=== PATIENT | male | born 1950 | race Caucasian/White ===

== ENCOUNTER 2018-04-26 22:38 | Inpatient (IN) | payer MEDICARE ==
[2018-04-26] MEDS ORDERED: SODIUM CHLORIDE 0.9% 1,000 ML IV ONE (22:49)
--- NOTE | 2018-04-26 22:49 | ED ---
General Adult HPI - General Stated complaint: Abdominal Pain Time Seen by Provider: 04/26/18 22:40 Source: RN notes reviewed - History of Present Illness Initial comments: This is a 67-year-old male who presents emergency department with past medical history significant for Crohn's. Patient started having some abdominal upset 2 days ago but yesterday he stopped having any bowel movements and passing any gas. Patient states today the pain got worse and he started vomiting. Patient went [facility] where they evaluated him and determined that he had small bowel obstruction or flareup of his Crohn's. Patient was transferred our facility because they had no appropriate specialties to take care of the patient. Patient denies any fever chills. Patient denies chest pain difficulty breathing shortest breath. Patient denies headache patient denies numbness weakness. Patient denies any recent fever chills or cough. Review of Systems ROS Statement: Those systems with pertinent positive or pertinent negative responses have been documented in the HPI. ROS Other: All systems not noted in ROS Statement are negative. General Exam - General Exam Comments Initial Comments: GENERAL: Patient is well-developed and well-nourished. Patient is nontoxic and well- hydrated and is in mild distress. ENT: Neck is soft and supple. No significant lymphadenopathy is noted. Oropharynx is clear. Moist mucous membranes. Neck has full range of motion without eliciting any pain. EYES: The sclera were anicteric and conjunctiva were pink and moist. Extraocular movements were intact and pupils were equal round and reactive to light. Eyelids were unremarkable. PULMONARY: Unlabored respirations. Good breath sounds bilaterally. No audible rales rhonchi or wheezing was noted. CARDIOVASCULAR: There is a regular rate and rhythm without any murmurs gallops or rubs. ABDOMEN: Soft and nontender with decreased bowel sounds. No palpable organomegaly was noted. There is no palpable pulsatile mass. SKIN: Skin is clear with no lesions or rashes and otherwise unremarkable. NEUROLOGIC: Patient is alert and oriented x3. Cranial nerves II through XII are grossly intact. Motor and sensory are also intact. Normal speech, volume and content. Symmetrical smile. MUSCULOSKELETAL: Normal extremities with adequate strength and full range of motion. LYMPHATICS: No significant lymphadenopathy is noted PSYCHIATRIC: Normal psychiatric evaluation. Normal interpersonal interactions appears functionally intact in deals appropriately with others. No signs of depression. No signs of anxiety. Course Vital Signs 04/26/18 22:39 Temperature 97.8 F Pulse Rate 75 Respiratory 20 Rate Blood Pressure 130/55 O2 Sat by Pulse 99 Oximetry Disposition Clinical Impression: Exacerbation of Crohn's disease, Small bowel obstruction Disposition: ADMITTED IP TO THIS HOSP Referrals: Redd Altman DO [Primary Care Provider] - 1-2 days Time of Disposition: 22:49
[2018-04-26] MEDS ORDERED: methylPREDNISolone SOD SUCCI 125 MG/2 ML VIAL IV STA (22:52)
[2018-04-27] MEDS ORDERED: methylPREDNISolone SOD SUCCI 125 MG/2 ML VIAL IV SCH
[2018-04-27] MEDS ORDERED: ONDANSETRON 4 MG/2 ML VIAL IVP PRN (00:22)
[2018-04-27] MEDS ORDERED: MORPHINE SULFATE 4 MG/ML SYRINGE IV PRN (00:22)
[2018-04-27] MEDS ORDERED: NALOXONE 0.4 MG/ML 1 ML VIAL IV PRN (00:22)
--- NOTE | 2018-04-27 00:37 | P.HPIM ---
History of Present Illness H&P Date: 04/27/18 Chief Complaint: abd pain and constipation 67 year old male with history of crohns disease , transferred to our facility from [facility] due to small bowel obstruction Patient reports 2 day history of abdominal pain worsening today described as colicky sharp pain 6 out of 10 in severity at its worse and eases down to 2 out of 10. This is diffuse in nature all over his abdomen, associated with repeated vomiting of stomach content nonbilious nonbloody, patient also noticed constipation and not to be able to pass gases over the past day or 2 for which she got concerned. Normally he has diarrhea on regular basis but nonbloody. He initially thought that some stomach upset however due to obstipation he got concerned and wants the hospital [facility] further workup revealed possible small bowel obstruction with colitis possible flareup of Crohn's disease. Patient was transferred to our facility for further care. Patient reports abdominal distention that has resolved since insertion of NG tube and suctioning Patient reports history of some bowel resection done 15 years ago. He denies any alcohol or illicit drugs. He admits to few cigarettes every day. He otherwise has no other medical problems from before denies any history of hypertension and CAD or diabetes. He denies any GI bleeding. He denies any fevers or chills denies any headache changes in his vision or hearing. He denies any focal neurologic deficits. Review of Systems Pertinent positives as noted in HPI. All other systems were reviewed and are negative Past Medical History Additional Past Medical History / Comment(s): Crohns History of Any Multi-Drug Resistant Organisms: None Reported Past Surgical History: Appendectomy, Bowel Resection, Orthopedic Surgery Past Psychological History: No Psychological Hx Reported Smoking Status: Current every day smoker Past Alcohol Use History: None Reported Past Drug Use History: None Reported - Past Family History Family Family Medical History: Diabetes Mellitus Additional Family Medical History / Comment(s): History of diabetes Medications and Allergies Home Medications Medication Instructions Recorded Confirmed Type No Known Home Medications 04/26/18 04/26/18 History Allergies Allergy/AdvReac Type Severity Reaction Status Date / Time ciprofloxacin [From Cipro] Allergy Unknown Verified 04/26/18 23:03 Physical Exam Vitals: Vital Signs Temp Pulse Resp BP Pulse Ox 04/26/18 22:39 97.8 F 75 20 130/55 99 Intake and Output 0704/26/18 04/27/18 14:59 22:59 06:59 Other: Weight 60.328 kg Constitutional: No acute distress, conversant, pleasant, hard of hearing Eyes: Anicteric sclerae, moist conjunctiva, no lid-lag Pupils equal round reactive to light ENMT: NC/AT Oropharynx clear, no erythema, or exudates Neck: Supple, FROM, no masses, or JVD No carotid bruits No thyromegaly Lungs: Clear to auscultation Clear to percussion Normal respiratory effort, no accessory muscle use Cardiovascular: Heart regular in rate and rhythm, No murmurs, gallops, or rubs No peripheral edema Abdominal: Soft abdomen, moving with respiration. Diffuse tenderness to deep palpation with voluntary guarding no rigidity no rebound tenderness. Bowel sounds are negative very mild abdominal distention No hepatomegaly, No splenomegaly No palpable mass No abdominal wall hernia noted Skin: Normal temperature, tone, texture, turgor No induration No subcutaneous nodules No rash, lesions No ulcers Extremities: No digital cyanosis No clubbing Pedal pulses intact and symmetrical Radial pulses intact and symmetrical No calf tenderness Psychiatric: Alert and oriented to person, place and time Appropriate affect fair judgment Neuro Muscles Strength 5/5 in all 4 extremities Sensation to light touch grossly present throughout Cranial nerves II-XII grossly intact No focal sensory deficits Lymphatics: no palpable cervical or supraclavicular , or inguinal lymph nodes NG tube in place connected to intermittent low suction Assessment and Plan Assessment: 67-year-old male with history of Crohn's disease and history of appendectomy and partial small bowel resection 15 years ago. Patient is admitted as inpatient with anticipated length of stay of one in 2 days he was transferred from [facility] facility due to finding of acute small bowel obstruction flareup of Crohn's disease. Plan: Acute small bowel obstruction Acute flareup of Crohn's disease Symptomatic control Bowel rest NG tube connected to low intermittent wall suctioning IV fluid hydration Monitor and correct electrolytes IV steroids GI consult General surgery consult DVT prophylaxis on heparin subcu 3 times a day Surrogate decision-maker: Patient CODE STATUS: Full code Anticipated discharge: 48-[address]: Home A total of 50 minutes was spent on the care of this complex patient more than 50 % of the time was spent in counseling and care coordination.
[2018-04-27] MEDS: methylPREDNISolone SOD SUCCI 125 MG/2 ML VIAL IVP SCH ×4 (06:26→23:57)
[2018-04-27] MEDS: HEPARIN SODIUM,PORCINE 5,000 UNIT/ML 1 ML VIAL SQ SCH ×3 (10:05→23:57)
[2018-04-27 12:14] VITALS: BMI 21.4
--- NOTE | 2018-04-27 12:15 | P.GSCN ---
History of Present Illness Consult date: 04/27/18 History of present illness: CHIEF COMPLAINT: Abdominal distention 1 day HISTORY OF PRESENT ILLNESS: The patient is a 67-year-old male transferred from [facility] secondary to bowel obstruction. He has a personal history of untreated Crohn's disease. He has past history of partial bowel resection involving the ileocecal valve. His is at bedside giving most of his history. He did have acute abdominal distention with pain and nausea and vomiting yesterday. Nasogastric tube was placed yesterday. This morning, abdominal distention is resolved. Abdominal pain is also improved. He is passing flatus. NG tube primarily putting out red succunt. He does not see a bias binding folder. PAST MEDICAL HISTORY: See list. PAST SURGICAL HISTORY: See list. CURRENT MEDICATIONS: See list. ALLERGIES: See list. SOCIAL HISTORY: See list. FAMILY HISTORY: Denies ulcerative colitis. REVIEW OF ORGAN SYSTEMS: CONSTITUTIONAL: Denies any fever or chills. HEENT: Denies any trouble with vision nosebleeds. No difficulty swallowing. He is hard of hearing. LYMPHATIC: The patient denies any lumps and bumps around the neck. ENDOCRINE: Denies any thyroid disorders. Denies any blood sugar glucose intolerance. RESPIRATORY: Denies shortness of breath including chronic cough. CARDIOVASCULAR: Denies history of chest pain with exertion. GASTROINTESTINAL: Has past history of multiple bowel obstructions GENITOURINARY: Denies any blood in urine or increased urinary frequency. MUSCULOSKELETAL: Has joint arthritis. NEUROLOGIC: Denies any numbness or tingling along the distal extremities. No seizure disorders or headaches. PSYCHIATRIC: Denies any depression or suicidal ideation. HEMATOLOGIC: Denies any abnormal bleeding or bruising. PHYSICAL EXAMINATION: GENERAL: Well developed and in no acute distress. Pleasant. HEENT: No sclera icterus. Extraocular movements grossly intact. Moist buccal mucosa. Head is atraumatic, normocephalic. Hears conversational speech. No nasal drainage. NG tube present with dark red aspirant. NECK: Supple without lymphadenopathy. No JV distention. CHEST: Non-labored respirations and equal bilateral excursions. CARDIOVASCULAR: Regular rate and rhythm. Palpable 2+ radial pulses. ABDOMEN: Soft. Nondistended. No peritonitis. Minimal lower quadrant abdominal pain with deep palpation. MUSCULOSKELETAL: No clubbing, cyanosis or edema. NEUROLOGIC: No focal or lateralizing signs. PSYCH: Appropriate affect. Alert and oriented to person, place and time. LABS: Reviewed STUDIES: CT of the abdomen and pelvis reviewed with findings consistent with dilated small bowel. Possible transition point right lower quadrant this is my personal interpretation. ASSESSMENT: 1. Right lower quadrant pain. 2. Small bowel obstruction 3. History of Crohn's disease, untreated PLAN: 1. Clinically he is doing well. Recommend additional imaging. 2. Bilateral SCDs. 3. IV fluid hydration 4. DVT prophylaxis with heparin. 5. GI prophylaxis. Thank you very much for allowing me to participate in the care of your patient. Past Medical History Additional Past Medical History / Comment(s): Crohns History of Any Multi-Drug Resistant Organisms: None Reported Past Surgical History: Appendectomy, Bowel Resection, Orthopedic Surgery Past Psychological History: No Psychological Hx Reported Smoking Status: Current every day smoker Past Alcohol Use History: None Reported Past Drug Use History: None Reported - Past Family History Family Family Medical History: Diabetes Mellitus Additional Family Medical History / Comment(s): History of diabetes Medications and Allergies Home Medications Medication Instructions Recorded Confirmed Type No Known Home Medications 04/26/18 04/26/18 History Allergies Allergy/AdvReac Type Severity Reaction Status Date / Time ciprofloxacin [From Cipro] Allergy Unknown Verified 04/26/18 23:03 Surgical - Exam Vital Signs Temp Pulse Resp BP Pulse Ox 97.8 F 75 20 130/55 99 04/26/18 22:39 04/26/18 22:39 04/26/18 22:39 04/26/18 22:39 04/26/18 22:39 ABDOMEN: Soft. Nondistended. No peritonitis. Minimal lower quadrant abdominal pain with deep palpation. Results - Labs 04/27/18 12:42 04/27/18 12:42 - Imaging CT scan - abdomen: image reviewed US - abdomen: image reviewed Assessment and Plan (1) Exacerbation of Crohn's disease Current Visit: Yes Status: Acute Code(s): K50.90 - CROHN'S DISEASE, UNSPECIFIED, WITHOUT COMPLICATIONS SNOMED Code(s): 11792847 (2) Small bowel obstruction Current Visit: Yes Status: Acute Code(s): K56.609 - UNSP INTESTNL OBST, UNSP TO PARTIAL VERSUS COMPLETE OBST SNOMED Code(s): 243969877 Plan: 1. Will repeat abdominal x-ray regarding clinical bowel obstruction which appears to be improving. 2. Continue steroids. 3. Will need follow-up and management with bias binding folder. 4. No surgical intervention needed. 5. Recommend antacid for gastritis with bleed. 6. Potential discontinue NG tube and start of clear liquid diet pending additional studies.
[2018-04-27] MEDS ORDERED: SODIUM CHLORIDE 0.9% 1,000 ML IV ONE (12:16)
--- NOTE | 2018-04-27 12:48 | P.PN ---
Subjective Progress Note Date: 04/27/18 Principal diagnosis: abdominal pain Patient is a 67-year-old male for history of Crohn's disease requiring resection of 9 inches of small bowel back in 2002 who has not had GI follow-up or colonoscopy since that time and tobacco abuse who initially presented to [facility] with complaints of abdominal pain and constipation. He underwent an extensive evaluation was found have a small bowel obstruction along with enteritis. His laboratory analysis showed an elevated white blood cell count. He had an NG tube placed and he was transferred to our facility for further management. He has been started on steroids. Patient seen and examined at bedside. He states he passed gas this morning for the first time in 2 days. He is still having copious amounts of drainage out of his NG tube. He denies any abdominal pain. No chest pain, shortness of breath, or nausea. I had a colonoscopy since having of bowel resection. He is not chronically taking anything for his Crohn's disease. He has intermittent diarrhea with blood in his stools and abdominal pain. He usually self resolves. His reports that he goes to the urgent care gets placed on steroids and then stopped taking these. He has never chronically followed up with the GI doctor. They live in [place]. Objective - Vital Signs Vital signs: Vital Signs Temp 97.7 F 04/27/18 07:00 Pulse 74 04/27/18 07:00 Resp 18 04/27/18 07:00 BP 102/62 04/27/18 07:00 Pulse Ox 92 L 04/27/18 07:00 Intake & Output 04/26/18 04/27/18 04/27/18 18:59 06:59 18:59 Output Total 900 Balance -900 Weight 60.328 kg 60.328 kg Output: Urine 900 Other: Voiding Method Urinal - Exam General: non toxic, mild distress, appears at stated age Derm: warm, dry Head: atraumatic, normocephalic, symmetric Eyes: EOMI, no lid lag, anicteric sclera Mouth: no lip lesion, mucus membranes moist Cardiovascular: S1-S2 regular, no murmur, positive posterior tibial pulse bilateral, Lungs: Breath sounds bilateral bases, no rhonchi, no rales , no accessory muscle use Abdominal: soft, tender to palpation left lower quadrant, no guarding, no appreciable organomegaly, NG tube in place Ext: no gross muscle atrophy, no edema, no contractures Neuro: CN II-XI grossly intact, no focal neuro deficits Psych: Alert, oriented, appropriate affect Assessment and Plan Assessment: Acute exacerbation of Crohn's disease with small bowel instruction -Nothing by mouth, NG tube in place -GI consultation -Surgical recommendations appreciated -Continue with steroids -Zosyn added -Continue to monitor progress -Stat CBC and basic metabolic profile based on bloody NG tube output Tobacco abuse -Cessation -Nicotine replacement DVT prophylaxis: Heparin Discussed with: Patient, , nursing Anticipated discharge: 3-[address]: Home A total of 35 minutes was spent on the care of this complex patient more than 50 % of the time was spent in counseling and care coordination.
[2018-04-27 12:54] LABS: HCT 39.6 % (39.0-53.0); HGB 12.9 gm/dL (13.0-17.5); MCH 32.7 pg (25.0-35.0); MCHC 32.7 g/dL (31.0-37.0); MCV 100.1 fL (80.0-100.0); Mean Platelet Volume 6.4; Platelet Count 341 k/uL (150-450); RBC 3.96 m/uL (4.30-5.90); RDW 12.7 % (11.5-15.5); WBC 11.4 k/uL (3.8-10.6)
[2018-04-27 13:05] LABS: ALT 33 U/L (21-72); AST 22 U/L (17-59); Alkaline Phosphatase 52 U/L (38-126); Anion Gap 8 mmol/L; Blood Urea Nitrogen 24 mg/dL (9-20); Calcium 8.1 mg/dL (8.4-10.2); Carbon Dioxide 24 mmol/L (22-30); Chloride 108 mmol/L (98-107); Glucose 115 mg/dL (74-99); Sodium 140 mmol/L (137-145); Total Bilirubin 0.5 mg/dL (0.2-1.3); Total Protein 5.3 g/dL (6.3-8.2)
--- NOTE | 2018-04-27 14:04 | XR ---
EXAMINATION TYPE: XR abdomen 2V , 2 VIEWS DATE OF EXAM ORDERED: 04/27/2018 HISTORY: bowel obstruction. COMPARISON: None. FINDINGS: An NG tube is been passed and its tip is within the stomach. The lung bases are clear. Within the abdomen, there are nondistended loops of large and small bowel throughout the abdomen. The re is contrast within the bladder from a recent CT scan. There is no evidence of free air. IMPRESSION: NONSPECIFIC ABDOMINAL PICTURE.
[2018-04-27] MEDS: PIPERACILLIN-TAZOBACTAM 3.375 GM in DEXTROSE/WATER 1 50ML.BAG IVPB SCH ×2 (15:40→23:57)
[2018-04-27] MEDS: PANTOPRAZOLE 40 MG/10 ML VIAL IVP SCH (21:09)
[2018-04-28] MEDS: methylPREDNISolone SOD SUCCI 125 MG/2 ML VIAL IVP SCH ×3 (05:17→22:00)
[2018-04-28 08:17] LABS: Basophils % (A) 0 %; Eosinophils % (A) 0 %; HCT 39.9 % (39.0-53.0); HGB 13.1 gm/dL (13.0-17.5); Lymphocytes # (A) 1.3 k/uL (1.0-4.8); Lymphocytes % (A) 8 %; MCH 32.9 pg (25.0-35.0); MCHC 32.8 g/dL (31.0-37.0); MCV 100.5 fL (80.0-100.0); Mean Platelet Volume 6.7; Monocytes # (A) 0.4 k/uL (0-1.0); Monocytes % (A) 3 %; Neutrophils # (A) 14.2 k/uL (1.3-7.7); Neutrophils % (A) 89 %; Platelet Count 313 k/uL (150-450); RBC 3.97 m/uL (4.30-5.90); RDW 12.7 % (11.5-15.5); WBC 15.9 k/uL (3.8-10.6)
[2018-04-28 08:29] LABS: ALT 33 U/L (21-72); AST 22 U/L (17-59); Alkaline Phosphatase 49 U/L (38-126); Anion Gap 5 mmol/L; Blood Urea Nitrogen 24 mg/dL (9-20); Calcium 8.2 mg/dL (8.4-10.2); Carbon Dioxide 25 mmol/L (22-30); Chloride 109 mmol/L (98-107); Glucose 153 mg/dL (74-99); Magnesium 2.1 mg/dL (1.6-2.3); Phosphorus 3.2 mg/dL (2.5-4.5); Potassium 4.4 mmol/L (3.5-5.1); Sodium 139 mmol/L (137-145); Total Bilirubin 0.4 mg/dL (0.2-1.3); Total Protein 5.3 g/dL (6.3-8.2)
[2018-04-28] MEDS: PANTOPRAZOLE 40 MG/10 ML VIAL IVP SCH ×2 (09:21→22:01)
[2018-04-28] MEDS: PIPERACILLIN-TAZOBACTAM 3.375 GM in DEXTROSE/WATER 1 50ML.BAG IVPB SCH ×2 (09:21→17:24)
[2018-04-28] MEDS: HEPARIN SODIUM,PORCINE 5,000 UNIT/ML 1 ML VIAL SQ SCH ×2 (09:21→17:24)
--- NOTE | 2018-04-28 12:54 | P.PN ---
Subjective Progress Note Date: 04/28/18 is at bedside. Patient has passed flatus. He had a bowel movement. Abdominal pain completely resolved. He presents for exacerbation of Crohn's. He has been seen by the word processing operator. WBC is elevated secondary to steroid exposure. Objective - Vital Signs Vital signs: Vital Signs Temp 96.9 F L 04/28/18 06:46 Pulse 61 04/28/18 06:46 Resp 18 04/28/18 06:46 BP 103/50 04/28/18 06:46 Pulse Ox 94 L 04/28/18 06:46 Intake & Output 04/27/18 04/28/18 04/28/18 18:59 06:59 18:59 Intake Total 500 Output Total 750 1 Balance -250 -1 Weight 60.328 kg Intake: Oral 500 Output: Urine 750 1 Other: Voiding Method Urinal Urinal # Voids 1 1 # Bowel Movements 0 - Exam GENERAL: Well developed and in no acute distress. Pleasant. HEENT: No sclera icterus. Extraocular movements grossly intact. Moist buccal mucosa. Head is atraumatic, normocephalic. Hears conversational speech. No nasal drainage. NG tube present with dark red aspirant. NECK: Supple without lymphadenopathy. No JV distention. CHEST: Non-labored respirations and equal bilateral excursions. CARDIOVASCULAR: Regular rate and rhythm. Palpable 2+ radial pulses. ABDOMEN: Soft. Nondistended. Nontender. MUSCULOSKELETAL: No clubbing, cyanosis or edema. NEUROLOGIC: No focal or lateralizing signs. PSYCH: Appropriate affect. Alert and oriented to person, place and time. SKIN: Well perfused. Good skin turgor. - Labs CBC & Chem 7: 04/28/18 08:05 04/28/18 08:05 Labs: Abnormal Lab Results - Last 24 Hours (Table) 04/27/18 04/27/18 04/28/18 Range/Units 12:42 12:42 08:05 WBC 11.4 H 15.9 H (3.8-10.6) k/uL RBC 3.96 L 3.97 L (4.30-5.90) m/uL Hgb 12.9 L (13.0-17.5) gm/dL MCV 100.1 H 100.5 H (80.0-100.0) fL Neutrophils # 14.2 H (1.3-7.7) k/uL Chloride 108 H (98-107) mmol/L BUN 24 H (9-20) mg/dL Glucose 115 H (74-99) mg/dL Calcium 8.1 L (8.4-10.2) mg/dL Total Protein 5.3 L (6.3-8.2) g/dL Albumin 3.0 L (3.5-5.0) g/dL 04/28/18 Range/Units 08:05 WBC (3.8-10.6) k/uL RBC (4.30-5.90) m/uL Hgb (13.0-17.5) gm/dL MCV (80.0-100.0) fL Neutrophils # (1.3-7.7) k/uL Chloride 109 H (98-107) mmol/L BUN 24 H (9-20) mg/dL Glucose 153 H (74-99) mg/dL Calcium 8.2 L (8.4-10.2) mg/dL Total Protein 5.3 L (6.3-8.2) g/dL Albumin 3.0 L (3.5-5.0) g/dL Assessment and Plan (1) Exacerbation of Crohn's disease Current Visit: Yes Status: Acute Code(s): K50.90 - CROHN'S DISEASE, UNSPECIFIED, WITHOUT COMPLICATIONS SNOMED Code(s): 53742378 (2) Small bowel obstruction Current Visit: Yes Status: Acute Code(s): K56.609 - UNSP INTESTNL OBST, UNSP TO PARTIAL VERSUS COMPLETE OBST SNOMED Code(s): 137528724 Plan: 1. Bowel obstruction resolved. 2. No surgical intervention. 3. Liquid diet now and may advance as tolerated. 4. May follow up as needed as outpatient. 5. Patient is clear for discharge per surgical standpoint when medically stable.
--- NOTE | 2018-04-28 14:47 | P.PN ---
Subjective Progress Note Date: 04/28/18 Principal diagnosis: abdominal pain Patient is a 67-year-old male for history of Crohn's disease requiring resection of 9 inches of small bowel back in 2002 who has not had GI follow-up or colonoscopy since that time and tobacco abuse who initially presented to [facility] with complaints of abdominal pain and constipation. He underwent an extensive evaluation was found have a small bowel obstruction along with enteritis. His laboratory analysis showed an elevated white blood cell count. He had an NG tube placed and he was transferred to our facility for further management. He has been started on steroids. Zosyn was added on the morning of 04/27. He had an NG tube removed overnight on 04/27. He had a bowel movement on the morning of 04/28. He was started on clear liquid diet and was tolerating. Patient seen and examined at bedside. No chest pain, shortness of breath, nausea, or vomiting. Tolerating liquid diet with breakfast this morning had a few sips of cough as well as some Jell-O. Objective - Vital Signs Vital signs: Vital Signs Temp 96.9 F L 04/28/18 06:46 Pulse 61 04/28/18 06:46 Resp 18 04/28/18 06:46 BP 103/50 04/28/18 06:46 Pulse Ox 94 L 04/28/18 06:46 Intake & Output 04/27/18 04/28/18 04/28/18 18:59 06:59 18:59 Intake Total 500 50 Output Total 750 1 Balance -250 -1 50 Weight 60.328 kg Intake: Intake, IV Titration 50 Amount Piperacillin-Tazobactam 3 50 .375 gm In Dextrose/Water 1 50ml.bag @ 12.5 mls/hr IVPB Q8HR [facility] Rx#: [id number] Oral 500 Output: Urine 750 1 Other: Voiding Method Urinal Urinal # Voids 1 1 # Bowel Movements 0 - Exam General: non toxic, no distress, appears at stated age Derm: warm, dry Head: atraumatic, normocephalic, symmetric Eyes: EOMI, no lid lag, anicteric sclera Mouth: no lip lesion, mucus membranes moist Cardiovascular: S1-S2 regular, no murmur, positive posterior tibial pulse bilateral, Lungs: Decreased Breath sounds bilateral bases, no rhonchi, no rales , no accessory muscle use Abdominal: soft, nontender to palpation, no guarding, no appreciable organomegaly, Ext: no gross muscle atrophy, no edema, no contractures Neuro: CN II-XI grossly intact, no focal neuro deficits Psych: Alert, oriented, appropriate affect - Labs CBC & Chem 7: 04/28/18 08:05 04/28/18 08:05 Labs: Abnormal Lab Results - Last 24 Hours (Table) 04/28/18 04/28/18 Range/Units 08:05 08:05 WBC 15.9 H (3.8-10.6) k/uL RBC 3.97 L (4.30-5.90) m/uL MCV 100.5 H (80.0-100.0) fL Neutrophils # 14.2 H (1.3-7.7) k/uL Chloride 109 H (98-107) mmol/L BUN 24 H (9-20) mg/dL Glucose 153 H (74-99) mg/dL Calcium 8.2 L (8.4-10.2) mg/dL Total Protein 5.3 L (6.3-8.2) g/dL Albumin 3.0 L (3.5-5.0) g/dL Assessment and Plan Assessment: Acute exacerbation of Crohn's disease -GI recommendations appreciated, plan is for colonoscopy and EGD as an outpatient -On clear liquid diet, will advance as tolerated -Decrease steroids to 60 twice a day -Zosyn -Continue to monitor progress Leukocytosis -Likely reactive secondary to steroids -Repeat CBC in a.m. Elevated BUN - component of steroid use - will add low dose fluids Tobacco abuse -Cessation -Nicotine replacement Small bowel obstruction, resolved Would consider early discharge home morning if he is tolerating his diet and abdominal pain remains resolved. Will need a course of oral prednisone at discharge. DVT prophylaxis: Heparin Discussed with: Patient, , nursing, Dr. Avery Anticipated discharge: Home in a.m. Anticipated discharge place: Home A total of 35 minutes was spent on the care of this complex patient more than 50 % of the time was spent in counseling and care coordination.
[2018-04-28] MEDS: SODIUM CHLORIDE 0.45% 1,000 ML IV SCH (17:25)
[2018-04-29] MEDS: HEPARIN SODIUM,PORCINE 5,000 UNIT/ML 1 ML VIAL SQ SCH ×4 (00:33→23:51)
[2018-04-29] MEDS: PIPERACILLIN-TAZOBACTAM 3.375 GM in DEXTROSE/WATER 1 50ML.BAG IVPB SCH ×2 (00:33→08:48)
[2018-04-29] MEDS: SODIUM CHLORIDE 0.45% 1,000 ML IV SCH ×2 (06:33→18:19)
[2018-04-29] MEDS: methylPREDNISolone SOD SUCCI 125 MG/2 ML VIAL IVP SCH (08:48)
[2018-04-29] MEDS: PANTOPRAZOLE 40 MG/10 ML VIAL IVP SCH ×2 (08:48→21:49)
[2018-04-29 08:53] LABS: HCT 37.7 % (39.0-53.0); HGB 12.6 gm/dL (13.0-17.5); MCH 33.9 pg (25.0-35.0); MCHC 33.5 g/dL (31.0-37.0); MCV 101.2 fL (80.0-100.0); Mean Platelet Volume 7.4; Platelet Count 268 k/uL (150-450); RBC 3.72 m/uL (4.30-5.90); RDW 12.7 % (11.5-15.5)
[2018-04-29 09:05] LABS: Anion Gap 8 mmol/L; Blood Urea Nitrogen 19 mg/dL (9-20); Calcium 8.3 mg/dL (8.4-10.2); Carbon Dioxide 24 mmol/L (22-30); Chloride 105 mmol/L (98-107); Glucose 167 mg/dL (74-99); Potassium 4.3 mmol/L (3.5-5.1); Sodium 137 mmol/L (137-145)
--- NOTE | 2018-04-29 09:17 | P.CONS ---
History of Present Illness - Reason for Consult Consult date: 04/28/18 Intestinal obstruction and history of Crohn's disease. - History of Present Illness This is a 67-year-old male who presents emergency department with past medical history significant for Crohn's. Patient started having some abdominal upset 2 days ago but yesterday he stopped having any bowel movements and passing any gas. Patient states today the pain got worse and he started vomiting. Patient went [facility] where they evaluated him and determined that he had small bowel obstruction or flareup of his Crohn's. Patient was transferred our facility because they had no appropriate specialties to take care of the patient. Patient denies any fever chills. Patient denies chest pain difficulty breathing shortest breath. Patient denies headache patient denies numbness weakness. Patient denies any recent fever chills or cough. Review of Systems Constitutional: Denies fever, chills or unintentional weight loss Neurologic: No headaches, double vision, slurring in the speech or other sensory or motor changes Cardiopulmonary: No chest pains, shortness of breath or palpitations Gastrointestinal: See present illness above Genitourinary: No hematuria, dysuria or frequency Musculoskeletal: No joint swelling or pain Skin: No rashes Endocrine: No diabetes or thyroid disease Hematologic: No bleeding tendency or anemia Psychiatry: No anxiety or depression Past Medical History Additional Past Medical History / Comment(s): Crohns History of Any Multi-Drug Resistant Organisms: None Reported Past Surgical History: Appendectomy, Bowel Resection, Orthopedic Surgery Past Psychological History: No Psychological Hx Reported Smoking Status: Current every day smoker Past Alcohol Use History: None Reported Past Drug Use History: None Reported - Past Family History Family Family Medical History: Diabetes Mellitus Additional Family Medical History / Comment(s): History of diabetes Medications and Allergies Home Medications Medication Instructions Recorded Confirmed Type No Known Home Medications 04/26/18 04/26/18 History Allergies Allergy/AdvReac Type Severity Reaction Status Date / Time ciprofloxacin [From Cipro] Allergy Unknown Verified 04/26/18 23:03 Physical Exam Vitals: Vital Signs Temp Pulse Resp BP Pulse Ox 04/28/18 06:46 96.9 F L 61 18 103/50 94 L 04/27/18 23:00 96.9 F L 59 L 18 95/59 93 L 04/27/18 15:55 20 04/27/18 15:00 99.6 F 72 20 101/68 94 L Intake and Output 04/27/18 04/28/18 04/28/18 22:59 06:59 14:59 Intake Total 500 Output Total 251 Balance 249 Intake: Oral 500 Output: Urine 251 Other: Voiding Method Urinal Urinal # Voids 1 Weight 60.328 kg General: Appeared stated age, very pleasant in no acute distress Head and neck: Normocephalic and atraumatic, conjunctivae pink and sclerae are not icteric, mucous membranes moist and pink. No masses in the neck or tracheal shifts Lungs: Clear to auscultation with no dullness to percussion Heart: Regular, no murmurs, gallops or friction rubs Abdomen: Soft, no masses or organomegalies. No tenderness. Bowel sounds present Extremities: No clubbing, cyanosis or edema Neurologic: Alert and oriented 3. Cranial nerves grossly intact, no gross sensory or motor abnormalities Results CBC & Chem 7: 04/29/18 08:45 04/29/18 08:45 Labs: Abnormal Lab Results - Last 24 Hours (Table) 04/27/18 04/27/18 04/28/18 Range/Units 12:42 12:42 08:05 WBC 11.4 H 15.9 H (3.8-10.6) k/uL RBC 3.96 L 3.97 L (4.30-5.90) m/uL Hgb 12.9 L (13.0-17.5) gm/dL MCV 100.1 H 100.5 H (80.0-100.0) fL Neutrophils # 14.2 H (1.3-7.7) k/uL Chloride 108 H (98-107) mmol/L BUN 24 H (9-20) mg/dL Glucose 115 H (74-99) mg/dL Calcium 8.1 L (8.4-10.2) mg/dL Total Protein 5.3 L (6.3-8.2) g/dL Albumin 3.0 L (3.5-5.0) g/dL 04/28/18 Range/Units 08:05 WBC (3.8-10.6) k/uL RBC (4.30-5.90) m/uL Hgb (13.0-17.5) gm/dL MCV (80.0-100.0) fL Neutrophils # (1.3-7.7) k/uL Chloride 109 H (98-107) mmol/L BUN 24 H (9-20) mg/dL Glucose 153 H (74-99) mg/dL Calcium 8.2 L (8.4-10.2) mg/dL Total Protein 5.3 L (6.3-8.2) g/dL Albumin 3.0 L (3.5-5.0) g/dL Assessment and Plan Assessment: 67-year-old male with history of Crohn's disease with prior resection in the past, presenting with picture of possible exacerbation and partial intestinal obstruction. Patient has not been on any medical therapy for a long time. Plan: Agree with your current management. He appears comfortable this morning and not manifesting any signs of obstruction after the NG tube was withdrawn. We will continue to monitor closely and I would consider a colonoscopy during this admission or as outpatient based on his course. I will discuss with you and follow with you with interest.
--- NOTE | 2018-04-29 14:00 | P.PN ---
Subjective Progress Note Date: 04/29/18 Principal diagnosis: abdominal pain Patient is a 67-year-old male for history of Crohn's disease requiring resection of 9 inches of small bowel back in 2002 who has not had GI follow-up or colonoscopy since that time and tobacco abuse who initially presented to [facility] with complaints of abdominal pain and constipation. He underwent an extensive evaluation was found have a small bowel obstruction along with enteritis. His laboratory analysis showed an elevated white blood cell count. He had an NG tube placed and he was transferred to our facility for further management. He has been started on steroids. Zosyn was added on the morning of 04/27. He had an NG tube removed overnight on 04/27. He had a bowel movement on the morning of 04/28. He was started on clear liquid diet and was tolerating. Patient appears to be doing much better today, diet was advanced to soft diet. Appears to be tolerated well. Pain is improved denies any nausea We'll continue to advance diet Objective - Vital Signs Vital signs: Vital Signs Temp 96.1 F L 04/29/18 07:21 Pulse 49 L 04/29/18 07:21 Resp 18 04/29/18 07:21 BP 109/61 04/29/18 07:21 Pulse Ox 97 04/29/18 07:21 Intake & Output 04/28/18 04/29/18 04/29/18 18:59 06:59 18:59 Intake Total 50 1278 Output Total 350 Balance 50 928 Intake: Intake, IV Titration 50 Amount Piperacillin-Tazobactam 3 50 .375 gm In Dextrose/Water 1 50ml.bag @ 12.5 mls/hr IVPB Q8HR [facility] Rx#: [id number] Oral 1278 Output: Urine 350 Other: Voiding Method Urinal Urinal # Voids 1 1 - Exam Constitutional: No acute distress, conversant, pleasant Eyes: Anicteric sclerae, moist conjunctiva, no lid-lag, PERRLA ENMT: NC/AT,Oropharynx clear, no erythema, exudates Neck:Supple, FROM, no masses, or JVD, No carotid bruits; No thyromegaly Lungs: Clear to auscultation, Clear to percussion, Normal respiratory effort, no accessory muscle use Cardiovascular: Heart regular in rate and rhythm, No murmurs, gallops, or rubs no peripheral edema Abdominal: Soft Nontender, nom distended, no guarding, no rebound or rigidity, Normoactive bowel sounds No hepatomegaly, No splenomegaly, No palpable mass No abdominal wall hernia noted Skin: Normal temperature, tone, texture, turgor, No induration No subcutaneous nodules, No rash, lesions, No ulcers Extremities:No digital cyanosis No clubbing, Pedal pulses intact and symmetrical Radial pulses intact and symmetrical Normal gait and station, No calf tenderness Psychiatric: Alert and oriented to person, place and time, Appropriate affect Intact judgement Neuro: Muscles Strength 5/5 in all 4 extremities, Sensation to light touch grossly present throughout, Cranial nerves II-XII grossly intact. No focal sensory deficits - Labs CBC & Chem 7: 04/29/18 08:45 04/29/18 08:45 Labs: Abnormal Lab Results - Last 24 Hours (Table) 04/29/18 04/29/18 Range/Units 08:45 08:45 WBC 15.0 H (3.8-10.6) k/uL RBC 3.72 L (4.30-5.90) m/uL Hgb 12.6 L (13.0-17.5) gm/dL Hct 37.7 L (39.0-53.0) % MCV 101.2 H (80.0-100.0) fL Glucose 167 H (74-99) mg/dL Calcium 8.3 L (8.4-10.2) mg/dL Assessment and Plan Plan: Acute exacerbation of Crohn's disease -GI recommendations appreciated, plan is for colonoscopy and EGD as an outpatient -On clear liquid diet, will advance as tolerated -Transition to prednisone -Discontinue Zosyn -Continue to monitor progress Leukocytosis -Likely reactive secondary to steroids -Repeat CBC in a.m. Elevated BUN - component of steroid use - will add low dose fluids Tobacco abuse -Cessation -Nicotine replacement Small bowel obstruction, resolved Would consider early discharge home morning if he is tolerating his diet and abdominal pain remains resolved. Will need a course of oral prednisone at discharge. DVT prophylaxis: Heparin Discussed with: Patient, , nursing, Dr. Avery Anticipated discharge: Home in a.m. Anticipated discharge place: Home A total of 35 minutes was spent on the care of this complex patient more than 50 % of the time was spent in counseling and care coordination.
[2018-04-29] MEDS: predniSONE 20 MG TAB PO SCH (14:16)
--- NOTE | 2018-04-29 18:35 | P.PN ---
Subjective Progress Note Date: 04/29/18 Patient is a 67-year-old male admitted secondary bowel obstruction with exacerbation of Crohn's disease. The last 2 days his abdominal pain is resolved. He is tolerated a regular diet. He has passed flatus. He had a bowel movement. Objective - Vital Signs Vital signs: Vital Signs Temp 99.2 F 04/29/18 13:50 Pulse 105 H 04/29/18 13:50 Resp 18 04/29/18 13:50 BP 117/65 04/29/18 13:50 Pulse Ox 95 04/29/18 13:50 Intake & Output 04/28/18 04/29/18 04/29/18 18:59 06:59 18:59 Intake Total 50 1976 Output Total 1875 Balance 50 101 Intake: Intake, IV Titration 50 Amount Piperacillin-Tazobactam 3 50 .375 gm In Dextrose/Water 1 50ml.bag @ 12.5 mls/hr IVPB Q8HR [facility] Rx#: [id number] Oral 1975 Output: Urine 1875 Other: Voiding Method Urinal Urinal # Voids 1 2 - Exam GENERAL: Well developed and in no acute distress. Pleasant. HEENT: No sclera icterus. Extraocular movements grossly intact. Moist buccal mucosa. Head is atraumatic, normocephalic. He is hard of hearing. No nasal drainage. NG tube present with dark red aspirant. NECK: Supple without lymphadenopathy. No JV distention. CHEST: Non-labored respirations and equal bilateral excursions. CARDIOVASCULAR: Regular rate and rhythm. Palpable 2+ radial pulses. ABDOMEN: Soft. Nondistended. Nontender. MUSCULOSKELETAL: No clubbing, cyanosis or edema. NEUROLOGIC: No focal or lateralizing signs. PSYCH: Appropriate affect. Alert and oriented to person, place and time. SKIN: Well perfused. Good skin turgor. - Labs CBC & Chem 7: 04/29/18 08:45 04/29/18 08:45 Labs: Abnormal Lab Results - Last 24 Hours (Table) 04/29/18 04/29/18 Range/Units 08:45 08:45 WBC 15.0 H (3.8-10.6) k/uL RBC 3.72 L (4.30-5.90) m/uL Hgb 12.6 L (13.0-17.5) gm/dL Hct 37.7 L (39.0-53.0) % MCV 101.2 H (80.0-100.0) fL Glucose 167 H (74-99) mg/dL Calcium 8.3 L (8.4-10.2) mg/dL Assessment and Plan (1) Exacerbation of Crohn's disease Current Visit: Yes Status: Acute Code(s): K50.90 - CROHN'S DISEASE, UNSPECIFIED, WITHOUT COMPLICATIONS SNOMED Code(s): 17802746 (2) Small bowel obstruction Current Visit: Yes Status: Acute Code(s): K56.609 - UNSP INTESTNL OBST, UNSP TO PARTIAL VERSUS COMPLETE OBST SNOMED Code(s): 801208993 Plan: 1. Patient is clear from a surgical standpoint for discharge. 2. Diet as tolerated 3. Follow-up with gastroenterology as outpatient
--- NOTE | 2018-04-29 21:28 | PN ---
PROGRESS NOTE The patient is a 67-year-old pleasant white male admitted to the hospital with acute onset of abdominal pain associated with nausea, vomiting, and subsequently was diagnosed with small-bowel obstruction. He was diagnosed with Crohn disease several years ago at which time he had a terminal ileal resection, but since then has not been maintained on any medications or . Since being in the hospital had an NG tube placed for small-bowel obstruction which was subsequently removed. Presently on a clear liquid diet, tolerating well. The abdominal pain has resolved. He denies any symptoms. He is on IV Solu-Medrol 60 mg q.12 hours. He had 2 bowel movements this morning. No fever, chills, night sweats. PHYSICAL EXAMINATION: Appears comfortable, in no apparent distress. Vitals are stable. Blood pressure is 132/86, pulse rate 62, temperature 98.1. HEENT examination unremarkable. Conjunctivae pink. Sclerae anicteric. Oral cavity, no lesion. NECK: No JVD or lymph node enlargement. Chest was clear to auscultation. HEART: Regular rate and rhythm. Abdomen is soft. Bowel sounds are positive. No organomegaly. EXTREMITIES: No pedal edema. SKIN: No rashes. NEUROLOGIC: Alert and oriented x3. No focal deficits. LABS: Labs from today: WBC 15, hemoglobin 12.6, platelets normal. IMPRESSION: Small bowel obstruction related to exacerbation of Crohn disease which was diagnosed about 12 years ago, status post small bowel resection at the time of diagnosis presently on IV Solu-Medrol 60 mg q.12 hours. Symptoms have improved. He is tolerating clear liquids and had 2 bowel movements this morning. RECOMMENDATIONS: 1. Change IV steroids to oral steroids with prednisone 40 mg daily. 2. Advance to a full liquid diet. 3. If his symptoms remain stable, he can be discharged home tomorrow with outpatient follow up with Dr. Suarez in 2 weeks. 4. He was advised to taper prednisone by 5 mg every week. Thank you for this consultation. MMODL / IJN: [id number] /
[2018-04-30 07:47] VITALS: BP 113/75; PULSE 69; RESP 16; TEMP 97.3
[2018-04-30] MEDS: HEPARIN SODIUM,PORCINE 5,000 UNIT/ML 1 ML VIAL SQ SCH (07:56)
[2018-04-30] MEDS: SODIUM CHLORIDE 0.45% 1,000 ML IV SCH (07:57)
[2018-04-30] MEDS: PANTOPRAZOLE 40 MG/10 ML VIAL IVP SCH (07:57)
[2018-04-30] MEDS: predniSONE 20 MG TAB PO SCH (08:23)
--- NOTE | 2018-04-30 09:17 | P.PN ---
Subjective Progress Note Date: 04/30/18 Principal diagnosis: Abdominal pain small bowel obstruction and exacerbation of Crohn's disease Feels better. Tolerating diet. Afebrile. Passing bowel movements. Anticipating discharge. Minimal abdominal discomfort. Objective - Vital Signs Vital signs: Vital Signs Temp 97.3 F L 04/30/18 07:00 Pulse 69 04/30/18 07:00 Resp 16 04/30/18 07:00 BP 113/75 04/30/18 07:00 Pulse Ox 95 04/30/18 07:00 Intake & Output 04/29/18 04/30/18 04/30/18 18:59 06:59 18:59 Intake Total 1975 600 Output Total 1875 750 Balance 101 -150 Intake: Intake, IV Titration 600 Amount Sodium Chloride 0.45% 1, 600 000 ml @ 75 mls/hr IV . [id number] [facility] Rx#:[id number] Oral 1975 Output: Urine 1875 750 Other: # Voids 2 2 - Exam General appearance: The patient is alert, oriented, in no acute distress. HET: Head is normocephalic and atraumatic. Pupils are equal and reactive. Oropharynx is clear without lesions. Neck: Supple without lymphadenopathy. Trachea midline. Heart: S1 S2. Regular rate and rhythm. Lungs: No crackles or wheezes are heard. Abdomen: Soft, nontender, nondistended with bowel sounds. No peritoneal signs. No palpable organomegaly or masses. Extremities: Normal skin color and turgor. No cyanosis, rash, ulceration, clubbing, or edema. Radial and pedal pulses are 2/4 bilaterally. Neurological: No focal deficits. Strength and sensation are grossly intact. - Labs CBC & Chem 7: 04/29/18 08:45 04/29/18 08:45 Assessment and Plan (1) Exacerbation of Crohn's disease Current Visit: Yes Status: Acute Code(s): K50.90 - CROHN'S DISEASE, UNSPECIFIED, WITHOUT COMPLICATIONS SNOMED Code(s): 73052750 (2) Small bowel obstruction Current Visit: Yes Status: Acute Code(s): K56.609 - UNSP INTESTNL OBST, UNSP TO PARTIAL VERSUS COMPLETE OBST SNOMED Code(s): 279948534 Plan: 1. Prednisone 40 mg daily taper down by 5 mg every 7 days. Return to office in 2-3 weeks [facility] office for reevaluation. Outpatient colonoscopy scheduled May 24. Assessment and plan a care discussed with Dr. Smith
--- NOTE | 2018-04-30 12:45 | P.DS ---
Providers Date of admission: 04/26/18 22:49 Expected date of discharge: 04/30/18 Attending physician: Beni Barrios MD Consults: 04/26/18 22:49 Consult Physician Urgent Consulting Provider: Brijesh Suarez Consult Reason/Comments: Small bowel obstruction, Crohn's Do you want consulting provider notified?: Yes 04/27/18 00:13 Consult Physician Routine Consulting Provider: Lillie Woodson Consult Reason/Comments: obstipation, small bowel obst, CD Do you want consulting provider notified?: Yes, Notify in am Primary care physician: Redd Altman - Discharge Diagnosis(es) (1) Exacerbation of Crohn's disease Current Visit: Yes Status: Acute (2) Small bowel obstruction Current Visit: Yes Status: Acute (3) Leukocytosis Current Visit: Yes Status: Acute (4) Nicotine abuse Current Visit: Yes Status: Acute Hospital Course: Patient is a 67-year-old male for history of Crohn's disease requiring resection of 9 inches of small bowel back in 2002 who has not had GI follow-up or colonoscopy since that time and tobacco abuse who initially presented to [facility] with complaints of abdominal pain and constipation. He underwent an extensive evaluation was found have a small bowel obstruction along with enteritis. His laboratory analysis showed an elevated white blood cell count. He had an NG tube placed and he was transferred to our facility for further management. He has been started on steroids. Zosyn was added on the morning of 04/27. He had an NG tube removed overnight on 04/27. He had a bowel movement on the morning of 04/28. He was started on clear liquid diet and was tolerating. Gen. surgery was consulted and his small bowel obstruction wasn't managed conservatively as stated. The patient was discharged home in stable condition tolerating a regular diet, With a prescription prednisone taper starting at 40 mg with tapered down by 5 mg every 7 days. The patient has a outpatient colonoscopy scheduled May 24 and a follow-up appointment in [place] 05/22/18. This discharge process took approximately 35 minutes. Focused physical exam GI: Soft nontender nondistended normoactive bowel sounds, no rebound tenderness or guarding Patient Condition at Discharge: Good Plan - Discharge Summary New Discharge Prescriptions: New predniSONE 10 mg PO DAILY #123 tab Discharge Medication List predniSONE 10 mg PO DAILY #123 tab 04/30/18 [Rx] Follow up Appointment(s)/Referral(s): Redd Altman DO [Primary Care Provider] - 05/02/18 9:15 am Juany Viera PAC [REFERRING] - 05/22/18 1:15 pm ([place] office) Patient Instructions/Handouts: Crohn Disease (DC), Low Fiber Diet (DC) Activity/Diet/Wound Care/Special Instructions: Activity as tolerated. Diet as per handout Outpatient colonoscopy May 24, [address] Erick [facility] arrive at 1130am; preop will call patient with additional instructions. Prep sent to [facility] in [place]. Discharge Disposition: HOME SELF-CARE
== END 2018-04-30 13:43 | disposition home or self-care (01) | DRG 386 ==
LOC: EC 22:38 → 4MS4W 22:49
PROVIDERS: ADMIT Internal Medicine; ATTEND Internal Medicine
DX: K50.912 Crohn's disease, unspecified, with intestinal obstruction (principal); F17.200 Nicotine dependence, unspecified, uncomplicated; Z83.3 Family history of diabetes mellitus; Z90.49 Acquired absence of other specified parts of digestive tract; Z88.1 Allergy status to other antibiotic agents; D72.828 Other elevated white blood cell count; T38.0X5A Adverse effect of glucocorticoids and synthetic analogues, initial encounter
CPT/HCPCS: 74019; 80048; 80053; 83735; 84100; 85025; 85027; 96361; 96374; 99284